=== PATIENT | male | born 1975 | race African-American/Black ===

== ENCOUNTER 2018-04-02 13:33 | Emergency (ER) | payer SELFPAY ==
[~2018-04-02] VITALS: Ht 167.6 cm; Wt 79.0 kg
[2018-04-02] MEDS ORDERED: IBUPROFEN 600MG TABLET PO ONE (17:45)
[2018-04-02 18:18] VITALS: BP 179/101
== END 2018-04-02 18:34 | disposition home or self-care (01) ==
LOC: ER 13:33
DX: M54.5 Low back pain (principal); I10 Essential (primary) hypertension; F12.10 Cannabis abuse, uncomplicated; F17.200 Nicotine dependence, unspecified, uncomplicated; X50.9XXA Other and unspecified overexertion or strenuous movements or postures, initial encounter; Y93.89 Activity, other specified; Y92.89 Other specified places as the place of occurrence of the external cause; Y99.8 Other external cause status
CPT/HCPCS: 99283